=== PATIENT | female | born 2005 | race African-American/Black ===

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

== ENCOUNTER 2024-01-02 02:41 | Emergency (ER) | payer MEDICAID ==
[~2024-01-02] VITALS: Ht 152.4 cm; Wt 48.5 kg
[2024-01-02 02:49] VITALS: TEMP 98.3; O2SAT 99
[2024-01-02 03:16] LABS: BASOPHILS % 0.9 % (0.0-2.0); EOSINOPHILS % 12.8 % (0.0-5.0); HEMATOCRIT. 36.2 % (36.0-48.0); HEMOGLOBIN. 12.2 g/dL (12.0-16.0); LYMPHOCYTES % 55.1 % (20.0-50.0); MEAN CORPUSCULAR HEMOGLOBIN 30.1 pg (28.0-32.0); MEAN CORPUSCULAR HGB CONC 33.8 g/dL (31.0-37.0); MEAN PLATELET VOLUME 6.7 fl (7.4-10.4); NEUTROPHILS % 20.2 % (40.0-76.0); PLATELET 389 x1000/uL (130-400); RED BLOOD CELL COUNT 4.07 mill/uL (4.2-5.4); RED CELL DISTRIBUTION WIDTH 12.6 % (11.6-14.6); WHITE BLOOD COUNT 5.1 x1000/uL (4.5-11.0)
[2024-01-02 03:35] LABS: HCG SCREEN NEGATIVE
[2024-01-02 03:52] LABS: CLARITY URINE CLEAR (CLEAR); COLOR URINE YELLOW (YELLOW); GLUCOSE URINE NEGATIVE (NEGATIVE); KETONES URINE NEGATIVE (NEGATIVE); LEUKOCYTE ESTERASE URINE TRACE (NEGATIVE); NITRITE URINE NEGATIVE (NEGATIVE); OCCULT BLOOD URINE NEGATIVE (NEGATIVE); PH URINE 6.5 (4.5-8.0); PROTEIN URINE NEGATIVE (NEGATIVE); SPECIFIC GRAVITY URINE 1.024 (1.005-1.030); UROBILINOGEN URINE 0.2 E.U./dL (0.2-1.0)
[2024-01-02 04:03] LABS: BACTERIA URINE TRACE; RBC URINE 0-2 /hpf (0-2); SQUAMOUS EPITHELIAL CELL URINE RARE /lpf (RARE/1+)
[2024-01-02 04:23] LABS: CHLORIDE 108 mEq/L (98-107); POTASSIUM 3.9 mEq/L (3.5-5.1); SODIUM 138 mEq/L (136-145)
[2024-01-02 04:24] LABS: CALCIUM 9.8 mg/dL (8.7-10.4); CARBON DIOXIDE 21 mEq/L (21-32)
[2024-01-02 04:29] LABS: CREATININE 0.6 mg/dL (0.6-1.0); GLUCOSE 93 mg/dL (70-105); UREA NITROGEN BLOOD 11 mg/dL (9-23)
[2024-01-02] MEDS ORDERED: ESOM40CA MT (06:36)
[2024-01-02] MEDS ORDERED: FAMO20TA8 MT (06:36)
[2024-01-02] MEDS: PANTOPRAZOLE 40MG DR TABLET PO ONE (07:22)
[2024-01-02 07:24] VITALS: BP 99/56; PULSE 74; RESP 14
== END 2024-01-02 07:24 | disposition home or self-care (01) ==
LOC: ER 02:41
DX: R10.13 Epigastric pain (principal)
CPT/HCPCS: 36415; 80048; 81003; 84703; 85025; 99283

== ENCOUNTER 2024-01-20 08:46 | Emergency (ER) | payer MEDICAID ==
[~2024-01-20] VITALS: Ht 165.1 cm; Wt 48.0 kg
[~2024-01-20 08:46] MED LIST: ESOM40CA MT; FAMO20TA8 MT
[2024-01-20 08:47] VITALS: BP 126/83; PULSE 86; RESP 16; TEMP 97.6; O2SAT 99
[2024-01-20 10:17] LABS: CLARITY URINE CLEAR (CLEAR); COLOR URINE YELLOW (YELLOW); GLUCOSE URINE NEGATIVE (NEGATIVE); KETONES URINE TRACE (NEGATIVE); LEUKOCYTE ESTERASE URINE NEGATIVE (NEGATIVE); NITRITE URINE NEGATIVE (NEGATIVE); OCCULT BLOOD URINE NEGATIVE (NEGATIVE); PH URINE 7.5 (4.5-8.0); PROTEIN URINE NEGATIVE (NEGATIVE); SPECIFIC GRAVITY URINE 1.008 (1.005-1.030); UROBILINOGEN URINE 0.2 E.U./dL (0.2-1.0)
== END 2024-01-20 09:24 | disposition left against medical advice (07) ==
LOC: ER 08:46
DX: R10.9 Unspecified abdominal pain (principal); Z53.21 Procedure and treatment not carried out due to patient leaving prior to being seen by health care provider
CPT/HCPCS: 81003; 81025

== ENCOUNTER 2024-04-14 12:40 | Emergency (ER) | payer MEDICAID ==
[~2024-04-14] VITALS: Ht 152.4 cm; Wt 49.0 kg
[2024-04-14 12:47] VITALS: TEMP 98.3; O2SAT 99
[2024-04-14 13:19] LABS: CLARITY URINE CLEAR (CLEAR); COLOR URINE YELLOW (YELLOW); GLUCOSE URINE NEGATIVE (NEGATIVE); KETONES URINE NEGATIVE (NEGATIVE); LEUKOCYTE ESTERASE URINE NEGATIVE (NEGATIVE); NITRITE URINE NEGATIVE (NEGATIVE); OCCULT BLOOD URINE NEGATIVE (NEGATIVE); PROTEIN URINE NEGATIVE (NEGATIVE); SPECIFIC GRAVITY URINE 1.026 (1.005-1.030)
[2024-04-14 13:27] LABS: BASOPHILS % 0.6 % (0.0-2.0); EOSINOPHILS % 4.2 % (0.0-5.0); HEMATOCRIT. 35.8 % (36.0-48.0); HEMOGLOBIN. 11.6 g/dL (12.0-16.0); MEAN CORPUSCULAR HEMOGLOBIN 29.2 pg (28.0-32.0); MEAN CORPUSCULAR HGB CONC 32.4 g/dL (31.0-37.0); MEAN CORPUSCULAR VOLUME 90.4 fL (81.0-99.0); MEAN PLATELET VOLUME 6.8 fl (7.4-10.4); MONOCYTES % 10.4 % (2.0-8.0); NEUTROPHILS % 50.8 % (40.0-76.0); PLATELET 416 x1000/uL (130-400); RED BLOOD CELL COUNT 3.97 mill/uL (4.2-5.4); RED CELL DISTRIBUTION WIDTH 12.5 % (11.6-14.6); WHITE BLOOD COUNT 5.4 x1000/uL (4.5-11.0)
[2024-04-14 13:35] LABS: CHLORIDE 107 mEq/L (98-107); POTASSIUM 3.6 mEq/L (3.5-5.1); SODIUM 136 mEq/L (136-145)
[2024-04-14 13:36] LABS: CALCIUM 9.6 mg/dL (8.7-10.4); CARBON DIOXIDE 23 mEq/L (21-32)
[2024-04-14 13:41] LABS: CREATININE 0.6 mg/dL (0.6-1.0); GLUCOSE 87 mg/dL (70-105); UREA NITROGEN BLOOD 9 mg/dL (9-23)
[2024-04-14 13:53] LABS: B-HCG QUANTITATIVE 22948 mIU/mL (<3)
[2024-04-14 15:41] VITALS: BP 118/76; PULSE 84; RESP 18; O2SAT 100
== END 2024-04-14 15:43 | disposition home or self-care (01) ==
LOC: ER 12:40
DX: O26.891 Other specified pregnancy related conditions, first trimester (principal); R10.2 Pelvic and perineal pain; Z3A.01 Less than 8 weeks gestation of pregnancy
CPT/HCPCS: 36415; 76801; 80048; 81003; 81025; 84702; 85025; 86850; 86900; 99284

== ENCOUNTER 2024-08-01 17:34 | Emergency (ER) | payer MEDICAID ==
[~2024-08-01] VITALS: Ht 152.4 cm; Wt 49.0 kg
[2024-08-01 17:40] VITALS: O2SAT 100
[2024-08-01 17:47] VITALS: BP 121/78; PULSE 89; RESP 16; TEMP 36.89184; O2SAT 100
[2024-08-01 18:13] LABS: CLARITY URINE CLOUDY (CLEAR); COLOR URINE YELLOW (YELLOW); GLUCOSE URINE NEGATIVE (NEGATIVE); KETONES URINE NEGATIVE (NEGATIVE); LEUKOCYTE ESTERASE URINE 1+ (NEGATIVE); NITRITE URINE NEGATIVE (NEGATIVE); OCCULT BLOOD URINE NEGATIVE (NEGATIVE); PROTEIN URINE NEGATIVE (NEGATIVE)
[2024-08-01 19:26] LABS: BACTERIA URINE 1+; RBC URINE NONE SEEN /hpf (0-2); SQUAMOUS EPITHELIAL CELL URINE 3+ /lpf (RARE/1+)
[2024-08-01] MEDS ORDERED: NITR100C MT (20:53)
[2024-08-02 11:19] LABS: UCG SCREEN NEGATIVE
== END 2024-08-01 21:16 | disposition home or self-care (01) ==
LOC: ER 17:34
DX: N39.0 Urinary tract infection, site not specified (principal); R30.0 Dysuria; M54.9 Dorsalgia, unspecified
CPT/HCPCS: 81003; 81025; 99283

== ENCOUNTER 2024-08-22 14:51 | Emergency (ER) | payer MEDICAID ==
[~2024-08-22] VITALS: Ht 162.6 cm; Wt 55.0 kg
[~2024-08-22 14:51] MED LIST changes: +NITR100C MT
[2024-08-22 15:17] VITALS: O2SAT 99
[2024-08-22 16:13] LABS: CLARITY URINE CLEAR (CLEAR); COLOR URINE YELLOW (YELLOW); GLUCOSE URINE NEGATIVE (NEGATIVE); PH URINE 6.5 (4.5-8.0); PROTEIN URINE TRACE (NEGATIVE); SPECIFIC GRAVITY URINE 1.029 (1.005-1.030)
[2024-08-22 16:14] LABS: KETONES URINE 3+ (NEGATIVE); LEUKOCYTE ESTERASE URINE 1+ (NEGATIVE); NITRITE URINE NEGATIVE (NEGATIVE); OCCULT BLOOD URINE NEGATIVE (NEGATIVE)
[2024-08-22 16:45] LABS: MUCUS URINE 3+ /lpf (< = 2+); SQUAMOUS EPITHELIAL CELL URINE 2+ /lpf (RARE/1+)
[2024-08-22 16:46] LABS: BACTERIA URINE TRACE; RBC URINE 0-2 /hpf (0-2); WBC URINE 0-2 /hpf (0-2)
[2024-08-22 17:58] LABS: BASOPHILS % 0.5 % (0.0-2.0); EOSINOPHILS % 1.3 % (0.0-5.0); HEMATOCRIT. 37.1 % (36.0-48.0); HEMOGLOBIN. 12.2 g/dL (12.0-16.0); LYMPHOCYTES % 44.2 % (20.0-50.0); MEAN CORPUSCULAR HEMOGLOBIN 29.8 pg (28.0-32.0); MEAN CORPUSCULAR VOLUME 90.4 fL (81.0-99.0); MEAN PLATELET VOLUME 6.7 fl (7.4-10.4); MONOCYTES % 11.8 % (2.0-8.0); NEUTROPHILS % 42.2 % (40.0-76.0); PLATELET 426 x1000/uL (130-400); RED BLOOD CELL COUNT 4.11 mill/uL (4.2-5.4); RED CELL DISTRIBUTION WIDTH 12.8 % (11.6-14.6); WHITE BLOOD COUNT 5.4 x1000/uL (4.5-11.0)
[2024-08-22 18:00] LABS: CHLORIDE 108 mEq/L (98-107); POTASSIUM 3.6 mEq/L (3.5-5.1); SODIUM 139 mEq/L (136-145)
[2024-08-22 18:01] LABS: CALCIUM 9.5 mg/dL (8.7-10.4); CARBON DIOXIDE 23 mEq/L (21-32)
[2024-08-22 18:06] LABS: CREATININE 0.7 mg/dL (0.6-1.0); GLUCOSE 93 mg/dL (70-105); UREA NITROGEN BLOOD 11 mg/dL (9-23)
[2024-08-22 18:18] LABS: B-HCG QUANTITATIVE 1193 mIU/mL (<3)
[2024-08-22] MEDS ORDERED: PREN-28 MT (18:19)
[2024-08-22 18:33] VITALS: BP 140/84; PULSE 85; RESP 18; TEMP 36.89184; O2SAT 99
== END 2024-08-22 18:40 | disposition home or self-care (01) ==
LOC: ER 14:51
DX: O26.891 Other specified pregnancy related conditions, first trimester (principal); Z3A.01 Less than 8 weeks gestation of pregnancy
CPT/HCPCS: 36415; 76801; 80048; 81003; 81025; 84702; 85025; 86850; 86900; 99284

== ENCOUNTER 2024-09-17 13:25 | Emergency (ER) | payer MEDICAID ==
[~2024-09-17] VITALS: Ht 152.4 cm; Wt 49.0 kg
[~2024-09-17 13:25] MED LIST changes: +PREN-28 MT
[2024-09-17 13:28] VITALS: O2SAT 98
[2024-09-17 13:58] VITALS: BP 95/61; PULSE 106; RESP 16; TEMP 98; O2SAT 100
[2024-09-17 16:50] LABS: BASOPHILS % 0.5 % (0.0-2.0); HEMOGLOBIN. 12.2 g/dL (12.0-16.0); LYMPHOCYTES % 35.8 % (20.0-50.0); MEAN CORPUSCULAR HEMOGLOBIN 29.9 pg (28.0-32.0); MEAN CORPUSCULAR HGB CONC 32.9 g/dL (31.0-37.0); MEAN CORPUSCULAR VOLUME 90.9 fL (81.0-99.0); MEAN PLATELET VOLUME 7.1 fl (7.4-10.4); MONOCYTES % 12.7 % (2.0-8.0); PLATELET 439 x1000/uL (130-400); RED BLOOD CELL COUNT 4.07 mill/uL (4.2-5.4); RED CELL DISTRIBUTION WIDTH 13.1 % (11.6-14.6); WHITE BLOOD COUNT 5.9 x1000/uL (4.5-11.0)
[2024-09-17 16:52] LABS: CHLORIDE 105 mEq/L (98-107); POTASSIUM 3.8 mEq/L (3.5-5.1); SODIUM 138 mEq/L (136-145)
[2024-09-17 16:53] LABS: CARBON DIOXIDE 26 mEq/L (21-32)
[2024-09-17 16:54] LABS: CALCIUM 9.9 mg/dL (8.7-10.4)
[2024-09-17 16:58] LABS: CREATININE 0.5 mg/dL (0.6-1.0); GLUCOSE 75 mg/dL (70-105); UREA NITROGEN BLOOD 12 mg/dL (9-23)
== END 2024-09-17 18:30 | disposition left against medical advice (07) ==
LOC: ER 13:25
DX: O03.4 Incomplete spontaneous abortion without complication (principal); R10.2 Pelvic and perineal pain; Z3A.01 Less than 8 weeks gestation of pregnancy; Z79.899 Other long term (current) drug therapy
CPT/HCPCS: 36415; 76801; 80048; 84702; 85025; 99284

== ENCOUNTER 2024-09-21 15:50 | Emergency (ER) | payer MEDICAID ==
[~2024-09-21] VITALS: Ht 152.4 cm; Wt 54.0 kg
[2024-09-21 15:55] VITALS: BP 120/71; PULSE 94; RESP 16; TEMP 36.9; O2SAT 100
[2024-09-21 18:37] LABS: BASOPHILS % 0.7 % (0.0-2.0); EOSINOPHILS % 3.4 % (0.0-5.0); HEMATOCRIT. 35.3 % (36.0-48.0); HEMOGLOBIN. 11.7 g/dL (12.0-16.0); LYMPHOCYTES % 41.9 % (20.0-50.0); MEAN CORPUSCULAR HEMOGLOBIN 30.4 pg (28.0-32.0); MEAN CORPUSCULAR HGB CONC 33.3 g/dL (31.0-37.0); MEAN CORPUSCULAR VOLUME 91.1 fL (81.0-99.0); MEAN PLATELET VOLUME 6.9 fl (7.4-10.4); MONOCYTES % 13.1 % (2.0-8.0); NEUTROPHILS % 40.9 % (40.0-76.0); PLATELET 423 x1000/uL (130-400); RED BLOOD CELL COUNT 3.87 mill/uL (4.2-5.4); RED CELL DISTRIBUTION WIDTH 13.1 % (11.6-14.6); WHITE BLOOD COUNT 5.2 x1000/uL (4.5-11.0)
[2024-09-21 18:41] LABS: CHLORIDE 108 mEq/L (98-107); SODIUM 138 mEq/L (136-145)
[2024-09-21 18:42] LABS: CARBON DIOXIDE 21 mEq/L (21-32)
[2024-09-21 18:43] LABS: CALCIUM 9.4 mg/dL (8.7-10.4)
[2024-09-21 18:47] LABS: CREATININE 0.5 mg/dL (0.6-1.0); GLUCOSE 79 mg/dL (70-105)
[2024-09-21 18:48] LABS: UREA NITROGEN BLOOD 8 mg/dL (9-23)
[2024-09-21 19:01] LABS: B-HCG QUANTITATIVE 37198 mIU/mL (<3)
== END 2024-09-21 20:00 | disposition home or self-care (01) ==
LOC: ER 15:50
DX: O03.9 Complete or unspecified spontaneous abortion without complication (principal)
CPT/HCPCS: 36415; 76830; 76856; 80048; 84702; 85025; 86850; 86900; 99284